=== PATIENT | female | born 1965 | race Caucasian/White ===

== ENCOUNTER → 2017-12-29 | Outpatient (CLI) | payer OTHER ==
--- NOTE | 2017-12-30 11:09 | MM ---
Reason for exam: screening (asymptomatic). Last mammogram was performed 2 years and 9 months ago. History: Patient history of other cancer. Family history of breast cancer in aunt. Took hormonal contraceptives for 20 years. Physical Findings: A clinical breast exam by your physician is recommended on an annual basis and results should be correlated with mammographic findings. MG 3D Screening Mammo W/Cad Bilateral CC and MLO view(s) were taken. Prior study comparison: April 11, 2015, bilateral MG screening mammo w CAD. March 20, 2011, [facility] DIGITAL RIGHT MAMMOGRAM w/CAD. There are scattered fibroglandular densities. There is chronic nodularity in the left breast. No significant changes when compared with prior studies. ASSESSMENT: Negative, BI-RAD 1 RECOMMENDATION: Routine screening mammogram of both breasts in 1 year.
== END | disposition home or self-care (01) ==
LOC: RADMAMWWP 06:52
PROVIDERS: ATTEND Obstetrics & Gynecology
DX: Z12.31 Encounter for screening mammogram for malignant neoplasm of breast (principal)
CPT/HCPCS: 77063; 77067

== ENCOUNTER → 2021-12-18 | Outpatient (CLI) | payer BC ==
--- NOTE | 2021-12-18 17:08 | MM ---
Reason for Exam: Screening (asymptomatic). Last mammogram was performed 3 year(s) and 11 month(s) ago. Patient History: Menarche at age 10. First Full-Term at age 24. Postmenopausal. Other cancer. Patient used Hormonal Contraceptives for 20 years. Maternal aunt had breast cancer. Sister had breast cancer. Risk Values: Yudelka 5 year model risk: 2.8%. NCI Lifetime model risk: 16.2%. Prior Study Comparison: 03/20/2011 Right Diagnostic Mammogram, [facility]. 04/11/2015 Bilateral Screening Mammogram, [facility]. 12/29/2017 Bilateral Screening Mammogram, [facility]. Tissue Density: There are scattered fibroglandular densities. Findings: Analyzed By CAD. Chronic nodularity is in the left axillary region. No suspicious groups of microcalcifications, spiculated or lobular masses, architectural distortion or other secondary signs of malignancy are mammographically apparent. Overall Assessment: Benign, BI-RAD 2 Management: Screening Mammogram of both breasts in 1 year. A negative mammogram report should not preclude additional follow up of suspicious palpable abnormalities. Patient should continue monthly self breast exam. A clinical breast exam by your physician is recommended on an annual basis and results should be correlated with mammographic findings. Electronically signed and approved by: Severiano Molina D.O. Radiologis
== END | disposition home or self-care (01) ==
LOC: RADMAMWWP 07:03
PROVIDERS: ATTEND Family Medicine
DX: Z12.31 Encounter for screening mammogram for malignant neoplasm of breast (principal); Z78.0 Asymptomatic menopausal state; Z80.3 Family history of malignant neoplasm of breast; Z85.89 Personal history of malignant neoplasm of other organs and systems
CPT/HCPCS: 77063; 77067